=== PATIENT | female | born 1990 | race Caucasian/White ===

== ENCOUNTER 2019-06-01 04:12 | Inpatient (IN) | payer OTHER, MEDICAID ==
[2019-06-01] MEDS ORDERED: RINGERS SOLUTION,LACTATED 1,000 ML IV ONE (04:33)
[2019-06-01] MEDS ORDERED: RINGERS SOLUTION,LACTATED 1,000 ML IV PRN (04:33)
[2019-06-01] MEDS ORDERED: PENICILLIN G POTASSIUM 5,000,000 UNIT in DEXTROSE 5%-WATER 100 ML IV ONE (04:33)
[2019-06-01] MEDS ORDERED: PENICILLIN G-K 5 MILLION UNIT VIAL ONE (04:39)
[2019-06-01] MEDS ORDERED: MISOPROSTOL 0.2 MG TABLET ONE (05:18)
[2019-06-01] MEDS ORDERED: OXYTOCIN/NORMAL SALINE 20 UNIT/1,000 ML RTUINJ ONE (05:18)
[2019-06-01] MEDS ORDERED: OXYTOCIN 10 UNIT/ML VIAL ONE (05:18)
[2019-06-01] MEDS ORDERED: LIDOCAINE 1% INJ-PF (10 MG/ML) 30 ML SDV ONE (05:18)
[2019-06-01 05:23] LABS: APPEARANCE,URINE CLEAR; BILIRUBIN,URINE NEGATIVE (NEGATIVE); COLOR,URINE YELLOW; GLUCOSE, URINE NEGATIVE (NEGATIVE); KETONES,URINE NEGATIVE (NEGATIVE); LEUKOCYTE ESTERASE,URINE NEGATIVE (NEGATIVE); NITRITE,URINE NEGATIVE (NEGATIVE); PROTEIN,URINE NEGATIVE (NEGATIVE); URINE SPECIFIC GRAVITY 1.018; UROBILINOGEN,URINE NEGATIVE mg/dL (<2.0)
[2019-06-01] MEDS ORDERED: DIPH/PERTUSS(ACELL)/TETANUS VAC/PF 0.5 ML SYR (>=10YO) IM PRN (06:01)
[2019-06-01] MEDS ORDERED: GLYCERIN/WITCH HAZEL LEAF 1 EACH MED..WIPE TP PRN (06:01)
[2019-06-01] MEDS ORDERED: OXYTOCIN/NORMAL SALINE 20 UNIT/1,000 ML RTUINJ IV PRN (06:01)
[2019-06-01] MEDS ORDERED: BENZOCAINE/MENTHOL AEROSOL SPRAY 56 ML TOP PRN (06:01)
[2019-06-01] MEDS ORDERED: PSEUDOEPHEDRINE HCL 30 MG TABLET PO PRN (06:01)
[2019-06-01] MEDS ORDERED: ZOLPIDEM TARTRATE 5 MG TABLET PO PRN (06:01)
[2019-06-01] MEDS ORDERED: ACETAMINOPHEN 325 MG TABLET PO PRN (06:01)
[2019-06-01] MEDS ORDERED: ACETAMINOPHEN WITH CODEINE #3 TABLET PO PRN ×2 (06:01)
[2019-06-01] MEDS ORDERED: PROMETHAZINE HCL 25 MG SUPP.RECT PR PRN (06:01)
[2019-06-01] MEDS ORDERED: PROMETHAZINE HCL 25 MG TABLET PO PRN (06:01)
[2019-06-01] MEDS ORDERED: NA PHOS,M-B/NA PHOS,DI-BA (ADULT) 133 ML ENEMA PR PRN (06:01)
[2019-06-01] MEDS ORDERED: DIBUCAINE 1% OINTMENT 28 GM TP PRN (06:01)
[2019-06-01] MEDS ORDERED: DIPHENHYDRAMINE HCL 25 MG CAPSULE PO PRN (06:01)
[2019-06-01] MEDS ORDERED: MAGNESIUM HYDROXIDE SUSP 30 ML UDCUP PO PRN (06:01)
[2019-06-01] MEDS ORDERED: MEASLES,MUMPS&RUBELLA VACC/PF 0.5 ML VIAL SUBCUT PRN (06:01)
[2019-06-01] MEDS ORDERED: PROMETHAZINE HCL INJ 25 MG/1 ML VIAL IV PRN (06:01)
--- NOTE | 2019-06-01 06:40 | Admission Physical ---
Datetime Report Generated by CPN: 06/01/2019 06:40 CURRENT ADMISSION Chief Complaint: Uterine Contractions Indication for Induction: Not Applicable Admit Impression : Term, Intrauterine ; Active Labor; Intact Membranes Admit Plan: Admit to Unit; Initiate Labor Protocol ALLERGIES Medication Allergies: No Medication Allergies: No Known Allergies (09/20/2015) Latex: No Latex Allergies Food Allergies: no Environmental Allergies: no OBSTETRICAL HISTORY EDC: 05/27/2019 00:00 : 6 Para: 2 Term: 2 : 0 SAB: 3 IAB: 0 Ectopic: 0 Livin Cesareans: 0 VBACs: 0 Multiple Births: 0 Gestational Diabetes: No Rh Sensitization: No Incompetent Cervix: No TERRELL: No Infertility: No ART Treatment: No Uterine Anomaly: No IUGR: No Hx Previous C/S: No Macrosomia: No Hx Loss/Stillborn: No PIH: No Hx : No Placenta Previa/Abruption: No Depression/PP Depression: No PTL/PROM: No Post Hemorrhage: No Current Procedures: Ultrasound SEE RECORDS Alcohol: No Marijuana : No Cocaine: No Other Illicit Drugs: No Cigarettes: Never Smoker. 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 Surgery: No Heart Disease: No Hosp/Surgery: Yes Autoimmune Disorder: No Anesthetic Complications: No Kidney Disease: No Abnormal Pap Smear: No Neuro/Epilepsy: No Psychiatric Disorders: No Other Medical Diseases: No Hepatitis/Liver Disease: No Significant Family History: No Varicosities/Phlebitis: No Trauma/Violence : No Thyroid Dysfunction: No Medical History Comments: INFECTIOUS HISTORY Gonorrhea: No Genital Herpes: No Chlamydia: No Tuberculosis: No Syphilis: No Hepatitis: No HIV/AIDS Exposure: No Rash or Viral Illness: No HPV: No PHYSICAL EXAM General: Normal HEENT: Normal Neurologic: Normal Thyroid: Deferred Heart: Normal Lungs: Normal Breast: Deferred Back: Normal Abdomen: Normal Genitourinary Exam: Normal Extremities: Normal DTRs: Normal Pelvic Type: Adequate Vital Signs: Reviewed VAGINAL EXAM Dilatation: 6 Effacement: 90 Station: -1 Contraction Comments: q 2-3 MEMBRANES Membranes: Intact FETUS A EGA: 40.5 Monitoring: External US FHR- Baseline: 130 Variability: Moderate 6-25bpm Accelerations: 15X15 Decelerations: None FHR Category: Category I Presentation: Vertex Admit Comment: 28yo at 40+5ega presents in active labor. GBS positive - initially refused bloodwork and PCN for GBS prophy. However after another discussion regarding risks then she agreed for PCN IV for GBS prophy. Admit to labor and delivery. Anticipate . H/o RPL. Anticipate . PLANS FOR LABOR AND DELIVERY Labor and Delivery: Plan Pain Management: Natural Feeding Preference: Breast Benefit of Breast Feed Discussed: Yes Circumcision: Yes INFORMED CONSENT Informed Consent Obtained: Vaginal Delivery; Risks, Benefits and Alternatives Discussed Signature: with User ID: [email or web address]
[2019-06-01 07:29] LABS: ABSOLUTE LYMPHOCYTES (AUTO) 0.7 10^3/uL (0.5-4.7); ABSOLUTE MONOCYTES (AUTO) 0.5 10^3/uL (0.1-1.4); BASOPHILS % (AUTO) 0.5 % (0-2); EOSINOPHILS % (AUTO) 0.4 % (0-6); HEMATOCRIT 34.2 % (36.0-47.0); HEMOGLOBIN 11.7 g/dL (12.0-15.5); LYMPHOCYTES % (AUTO) 7.1 % (13-45); MEAN CORPUSCULAR HGB CONC 34.3 g/dL (32.0-36.0); MEAN CORPUSCULAR VOLUME 85 fl (80-97); MONOCYTES % (AUTO) 4.6 % (3-13); PLATELET COUNT 181 10^3/uL (150-450); RED BLOOD COUNT 4.04 10^6/uL (3.72-5.28); RED CELL DISTRIBUTION WIDTH 15.7 % (11.5-14.0); SEGMENTED NEUTROPHILS % (AUTO) 87.4 % (42-78); TOTAL CELLS COUNTED % (AUTO) 100 %; WHITE BLOOD COUNT 10.3 10^3/uL (4.0-10.5)
[2019-06-01] MEDS ORDERED: PENICILLIN G POTASSIUM 2,500,000 UNIT in DEXTROSE 5%-WATER 50 ML IV SCH (08:34)
[2019-06-01 09:43] LABS: URINE AMPHETAMINES SCREEN NEGATIVE; URINE BARBITURATES SCREEN NEGATIVE; URINE BENZODIAZEPINES SCREEN NEGATIVE; URINE COCAINE SCREEN NEGATIVE; URINE MARIJUANA (THC) SCREEN NEGATIVE; URINE METHADONE SCREEN NEGATIVE; URINE PHENCYCLIDINE SCREEN NEGATIVE
[2019-06-01] MEDS: IBUPROFEN 800 MG TABLET PO SCH ×3 (09:51→22:28)
--- NOTE | 2019-06-01 10:02 | Delivery Summary ---
Del Sum A-C Datetime Report Generated by CPN: 06/01/2019 10:02 DELIVERY PERSONNEL DELIVERY PERSONNEL: [id number] Delivery Doctor:: Leeann Deluca MD Labor and Delivery Nurse:: Dawna Coon, [facility] Senior Test Engineer/MANAGER RETENTION: Leigh Green, ST MATERNAL INFORMATION Delivery Anesthesia: None Medications After Delivery: Pitocin Drip 20 Units/1000ml NSS Delivery QBL: 140 Delivery QBL Comment: 75 Maternal Complications: Precipitous Labor (<3hrs) Provider Comments: VMI delivered in GRANT presentation. NO nuchal cord. Shoulders and body delivered without difficulty. Cord doubly clamped and cut. to maternal abdomen for NRP. Placenta delivered intact spontaneously. FF at U. 1st degree perineal laceration repaired with good hemostasis. Mother and baby stable upon provider leaving the room. LABOR SUMMARY EDC: 05/27/2019 00:00 No. Babies in Womb: 1 Attempted: No Labor Anesthesia: None LABOR INFORMATION Reason for Induction: Not Applicable Onset of Labor: 06/01/2019 01:00 Complete Dilatation: 06/01/2019 05:30 Group B Beta Strep: pos Antibiotics # of Doses: 1 Antibiotics Time of Last Dose: 514 Name of Antibiotic Given: penicillin Steroids Given: None Reason Steroids Not Administered: Not Applicable MEMBRANES Membranes Rupture Method: Spontaneous Rupture of Membranes: 06/01/2019 05:30 Length of Rupture (hr): 0.18 Amniotic Fluid Color: Clear Amniotic Fluid Amount: Scant Amniotic Fluid Odor: Normal STAGES OF LABOR Stage 1 hr: 4 Stage 1 min: 30 Stage 2 hr: 0 Stage 2 min: 11 Stage 3 hr: 0 Stage 3 min: 4 Total Time in Labor hr: 4 Total Time in Labor min: 45 VAGINAL DELIVERY Episiotomy: None Laceration #1: Perineal Laceration Extension #1: First Degree Laceration Repair: Yes Laceration Repair Note: 1st degree perineal laceration repaired with good hemostasis. Sponge Count Correct: Yes Sharps Count Correct: Yes CSECTION DELIVERY Primary Indication: N/A CSection Incision: N/A BABY A INFORMATION Infant Delivery Date/Time: 06/01/2019 05:41 Method of Delivery: Vaginal Born in Route : No : N/A Forceps: N/A Vacuum Extraction: N/A Shoulder Dystocia : No PRESENTATION/POSITION BABY A Presentation: Cephalic Cephalic Presentation: Vertex Vertex Position: Left Occipital Anterior Breech Presentation: N/A PLACENTA INFORMATION BABY A Placenta Delivery Time : 06/01/2019 05:45 Placenta Method of Delivery: Spontaneous Placenta Status: Delivered SCORES BABY A Heart Rate 1 min: >100 bpm Resp Effort 1 min: Good Cry Reflex Irritability 1 min: Cough or Sneeze or Pulls Away Muscle Tone 1 min: Active Motion Color 1 min: Body [place], Extremities Blue Resuscitation Effort 1 min: Tactile Stimulation SCORE 1 MIN: 9 Heart Rate 5 min: >100 bpm Resp Effort 5 min: Good Cry Reflex Irritability 5 min: Cough or Sneeze or Pulls Away Muscle Tone 5 min: Active Motion Color 5 min: Body [place], Extremities Blue Resuscitation Effort 5 min: Tactile Stimulation SCORE 5 MIN: 9 INFANT INFORMATION BABY A Gestational Age at Delivery: 40.5 Gestational Status: Full Term- 39- 40.6 Weeks Infant Outcome : Liveborn Infant Condition : Stable Infant Sex: Male IDENTIFICATION BABY A Verification Date/Time: 06/01/2019 06:09 ID Band Number: [id number] Mother's Name Verified: Yes Infant RN Verifying : K Damian, RN/ J Mak, RN CORD INFORMATION BABY A No. Cord Vessels: 3 Nuchal Cord : N/A Nuchal Cord- Other: foot and shoulder Cord Blood Taken: Yes-For Eval (Mom's Blood Type - or O+) Infant Suction: Mouth; Nose ASSESSMENT BABY A Complications: None Physical Findings at Delivery: Within Normal Limits Infant Respirations: Appears Normal Skin to Skin: Yes Skin to Skin Time (min): 40 Production Corrugator/ALS Called : No Care By: Britney Coon RN Transferred To: Remains with Mother BABY B INFORMATION : N/A SIGNATURES Signature: with User ID: [email or web address]
[2019-06-01] MEDS: DOCUSATE SODIUM 100 MG CAPSULE PO SCH ×2 (11:27→17:41)
[2019-06-01] MEDS: FAMOTIDINE 20 MG TABLET PO SCH ×2 (11:27→22:28)
[2019-06-01] MEDS: PRENATAL VITAMIN W DHA CAPSULE PO SCH (11:27)
[2019-06-01] MEDS: FERROUS SULFATE 325 MG TABLET PO SCH ×2 (11:27→17:41)
[2019-06-01] MEDS: SENNOSIDES/DOCUSATE 8.6-50 MG 1 EACH TABLET PO SCH (11:28)
[2019-06-02] MEDS: IBUPROFEN 800 MG TABLET PO SCH ×3 (06:02→22:43)
[2019-06-02 07:04] LABS: HEMATOCRIT 35.3 % (36.0-47.0); MEAN CORPUSCULAR HEMOGLOBIN 28.7 pg (27.0-33.4); MEAN CORPUSCULAR VOLUME 85 fl (80-97); PLATELET COUNT 194 10^3/uL (150-450); RED BLOOD COUNT 4.18 10^6/uL (3.72-5.28); RED CELL DISTRIBUTION WIDTH 15.7 % (11.5-14.0); WHITE BLOOD COUNT 6.8 10^3/uL (4.0-10.5)
[2019-06-02] MEDS: DOCUSATE SODIUM 100 MG CAPSULE PO SCH ×2 (09:30→18:03)
[2019-06-02] MEDS: PRENATAL VITAMIN W DHA CAPSULE PO SCH (09:30)
[2019-06-02] MEDS: FAMOTIDINE 20 MG TABLET PO SCH ×2 (09:30→22:42)
[2019-06-02] MEDS: FERROUS SULFATE 325 MG TABLET PO SCH ×2 (09:30→18:03)
[2019-06-02] MEDS: SENNOSIDES/DOCUSATE 8.6-50 MG 1 EACH TABLET PO SCH (09:31)
--- NOTE | 2019-06-02 09:57 | PDOC PROGRESS REPORT ---
Subjective-OB Progress Note for:: 06/02/19 Physical Exam (OB) Vital Signs: Temp Pulse Resp BP Pulse Ox 98.1 F 64 16 97/70 L 98 06/02/19 07:41 06/02/19 07:41 06/02/19 07:41 06/02/19 07:41 06/02/19 07:41 Intake & Output 06/01/19 06/02/19 06/03/19 06:59 06:59 06:59 Intake Total 900 Balance 900 Weight 55.868 kg - PIH/Pre-Eclampsia Clonus: Negative Headache: Absent Epigastric Pain: No Visual Changes: No - Lochia Lochia Amount: Scant < 10 ml Lochia Color: Rubra/Red - Abdomen Description: Soft, Round Hernia Present: No Bowel Sounds: Normoactive Flatus Presence: Present Stool: No Fundal Description: Firm, Midline Fundal Height: u/u - u/2 Objective-Diagnostic Laboratory: 06/02/19 06:23 06/02/19 06:23 WBC 6.8 RBC 4.18 Hgb 12.0 Hct 35.3 L MCV 85 MCH 28.7 MCHC 34.0 RDW 15.7 H Plt Count 194
[2019-06-03] MEDS: IBUPROFEN 800 MG TABLET PO SCH (05:24)
[2019-06-03 09:40] VITALS: BP 99/73
[2019-06-03] MEDS: DOCUSATE SODIUM 100 MG CAPSULE PO SCH (09:59)
[2019-06-03] MEDS: SENNOSIDES/DOCUSATE 8.6-50 MG 1 EACH TABLET PO SCH (09:59)
[2019-06-03] MEDS: FERROUS SULFATE 325 MG TABLET PO SCH (09:59)
[2019-06-03] MEDS: PRENATAL VITAMIN W DHA CAPSULE PO SCH (09:59)
[2019-06-03] MEDS: FAMOTIDINE 20 MG TABLET PO SCH (10:52)
--- NOTE | 2019-06-03 11:46 | PDOC DISCHARGE SUMMARY ---
Impression - Admit/DC Date/PCP Admission Date/Primary Care Provider: 06/01/19 04:40 HAILY MORROW MD Discharge Date: 06/03/19 - Discharge Diagnosis (1) Obstetrical laceration, first degree Is this a current diagnosis for this admission?: Yes (2) Active labor at term Is this a current diagnosis for this admission?: Yes (3) Carrier or suspected carrier of group B Streptococcus Is this a current diagnosis for this admission?: Yes (4) Precipitous delivery, delivered (current hospitalization) Is this a current diagnosis for this admission?: Yes - Additional Information Discharge Diet: As Tolerated, Regular Discharge Activity: Activity As Tolerated, Pelvic Rest Referrals: [facility] [Provider Group] Prescriptions: Ibuprofen [Motrin 800 mg Tablet] 800 mg PO Q8HP PRN #60 tablet PRN Reason: Vit/Dha [ Multi + Dha Capsule] 1 cap PO DAILY #90 capsule Home Medications: Ibuprofen [Motrin 800 mg Tablet] 800 mg PO Q8HP PRN #60 tablet 06/03/19 Vit/Dha [ Multi + Dha Capsule] 1 cap PO DAILY #90 capsule 06/03/19 HPI Gestational Age: 40+5 Reason(s) for Admission: Onset of Labor Procedures: NST Intrapartum Procedure(s): Spontaneous Vaginal Delivery Complication(s): Laceration-Perineal Laceration-Degree: 1st Results Laboratory Results: WBC 6.8 10^3/uL (4.0-10.5) 06/02/19 06:23 RBC 4.18 10^6/uL (3.72-5.28) 06/02/19 06:23 Hgb 12.0 g/dL (12.0-15.5) 06/02/19 06:23 Hct 35.3 % (36.0-47.0) L 06/02/19 06:23 MCV 85 fl (80-97) 06/02/19 06:23 MCH 28.7 pg (27.0-33.4) 06/02/19 06:23 MCHC 34.0 g/dL (32.0-36.0) 06/02/19 06:23 RDW 15.7 % (11.5-14.0) H 06/02/19 06:23 Plt Count 194 10^3/uL (150-450) 06/02/19 06:23 Lymph % (Auto) 7.1 % (13-45) L 06/01/19 06:48 Drew % (Auto) 4.6 % (3-13) 06/01/19 06:48 Eos % (Auto) 0.4 % (0-6) 06/01/19 06:48 Baso % (Auto) 0.5 % (0-2) 06/01/19 06:48 Absolute Neuts (auto) 9.0 10^3/uL (1.7-8.2) H 06/01/19 06:48 Absolute Lymphs (auto) 0.7 10^3/uL (0.5-4.7) 06/01/19 06:48 Absolute Monos (auto) 0.5 10^3/uL (0.1-1.4) 06/01/19 06:48 Absolute Eos (auto) 0.0 10^3/uL (0.0-0.6) 06/01/19 06:48 Absolute Basos (auto) 0.0 10^3/uL (0.0-0.2) 06/01/19 06:48 Seg Neutrophils % 87.4 % (42-78) H 06/01/19 06:48 Urine Color YELLOW 06/01/19 04:30 Urine Appearance CLEAR 06/01/19 04:30 Urine pH 7.0 (5.0-9.0) 06/01/19 04:30 Ur Specific Center 1.018 06/01/19 04:30 Urine Protein NEGATIVE mg/dL (NEGATIVE) 06/01/19 04:30 Urine Glucose (UA) NEGATIVE mg/dL (NEGATIVE) 06/01/19 04:30 Urine Ketones NEGATIVE mg/dL (NEGATIVE) 06/01/19 04:30 Urine Blood NEGATIVE (NEGATIVE) 06/01/19 04:30 Urine Nitrite NEGATIVE (NEGATIVE) 06/01/19 04:30 Urine Bilirubin NEGATIVE (NEGATIVE) 06/01/19 04:30 Urine Urobilinogen NEGATIVE mg/dL (<2.0) 06/01/19 04:30 Ur Leukocyte Esterase NEGATIVE (NEGATIVE) 06/01/19 04:30 Urine Ascorbic Acid 20 (NEGATIVE) H 06/01/19 04:30 Urine Opiates Screen NEGATIVE 06/01/19 07:01 Urine Methadone Screen NEGATIVE 06/01/19 07:01 Ur Barbiturates Screen NEGATIVE 06/01/19 07:01 Ur Phencyclidine Scrn NEGATIVE 06/01/19 07:01 Ur Amphetamines Screen NEGATIVE 06/01/19 07:01 U Benzodiazepines Scrn NEGATIVE 06/01/19 07:01 Urine Cocaine Screen NEGATIVE 06/01/19 07:01 U Marijuana (THC) Screen NEGATIVE 06/01/19 07:01 RPR NONREACTIVE (NONREACTIVE) 06/01/19 06:48 Blood Type O POSITIVE 06/01/19 06:48 Antibody Screen NEGATIVE 06/01/19 06:48 Plan Plan of Treatment: follow up in 4 weeks at [facility] for post exam
== END 2019-06-03 13:00 | disposition home or self-care (01) | DRG 807 ==
LOC: LC 04:12 → LR 04:40 → 2S 09:20
PROVIDERS: ADMIT Student in an Organized Health Care Education/Training Program; ATTEND Student in an Organized Health Care Education/Training Program
PROC: 10E0XZZ Delivery of Products of Conception, External Approach (ICD-10-PCS; principal; 2019-06-01)
PROC: 0HQ9XZZ Repair Perineum Skin, External Approach (ICD-10-PCS; 2019-06-01)
DX: O99.824 Streptococcus B carrier state complicating childbirth (principal); Z37.0 Single live birth; O62.3 Precipitate labor; O70.0 First degree perineal laceration during delivery; Z3A.40 40 weeks gestation of pregnancy
CPT/HCPCS: 36415; 80307; 81005; 85025; 85027; 86592; 86850; 86900; 86901; J2540; J2590; J3490; J7060